=== PATIENT | female | born 2000 | race Two or more races ===

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

== ENCOUNTER 2020-07-01 15:28 | Emergency (ER) | payer OTHER ==
[2020-07-01 15:39] VITALS: BP 121/70; PULSE 69; RESP 18; TEMP 98.4
--- NOTE | 2020-07-01 15:45 | ED ---
Female Urogenital HPI - General Chief complaint: Urogenital Stated complaint: Abd pain/back pain Time Seen by Provider: 07/01/20 15:40 Source: patient Mode of arrival: ambulatory Limitations: no limitations - History of Present Illness Initial comments: patient is a 19-year-old male presents to emergency Department with chief complaint of burning with urination. Patient states this is benign when for approximately 2 weeks foot today she also developed some back pain. She denies any nausea vomiting fever or chills. She denies any hematuria, hematochezia or melena. Denies any vaginal itching, discharge, bleeding or foul smell. Denies any possibility for . States she spoke to her primary care physician who started her on omeprazole and ciprofloxacin. Patient is only taken 2 doses of ciprofloxacin with no improvement in symptoms. She does not have past medical history significant for UTI. she does not have any concerns for STDs. - Related Data Home Medications Medication Instructions Recorded Confirmed Ciprofloxacin HCl 500 mg PO Q12H 07/01/20 07/01/20 Omeprazole 20 mg PO [id number]-[id number] 07/01/20 07/01/20 Previous Rx's Medication Instructions Recorded Phenazopyridine HCl [Pyridium] 100 mg PO TID #21 tab 07/01/20 Sulfamethox-Tmp 800-160Mg [Bactrim 1 each PO Q12HR #10 tab 07/01/20 Ds] Allergies Allergy/AdvReac Type Severity Reaction Status Date / Time No Known Allergies Allergy Verified 07/01/20 16:30 Review of Systems ROS Statement: Those systems with pertinent positive or pertinent negative responses have been documented in the HPI. ROS Other: All systems not noted in ROS Statement are negative. Past Medical History Past Medical History: No Reported History History of Any Multi-Drug Resistant Organisms: None Reported Past Surgical History: No Surgical Hx Reported Past Psychological History: No Psychological Hx Reported Smoking Status: Never smoker Past Alcohol Use History: None Reported Past Drug Use History: None Reported General Exam Limitations: no limitations General appearance: alert, in no apparent distress Head exam: Present: atraumatic, normocephalic, normal inspection Eye exam: Present: normal appearance, PERRL, EOMI Pupils: Present: normal accommodation ENT exam: Present: normal exam, normal oropharynx, mucous membranes moist Neck exam: Present: normal inspection, full ROM. Absent: tenderness Respiratory exam: Present: normal lung sounds bilaterally. Absent: respiratory distress Cardiovascular Exam: Present: regular rate, normal rhythm, normal heart sounds GI/Abdominal exam: Present: soft. Absent: distended, tenderness, guarding, rigid Extremities exam: Present: normal inspection, full ROM, normal capillary refill. Absent: tenderness, pedal edema, joint swelling Back exam: Present: normal inspection, full ROM. Absent: tenderness, CVA tenderness (R), CVA tenderness (L) Neurological exam: Present: alert, oriented X3 Psychiatric exam: Present: normal affect, normal mood Skin exam: Present: warm, dry, intact, normal color Course Vital Signs 07/01/20 15:36 Temperature 98.4 F Pulse Rate 69 Respiratory 18 Rate Blood Pressure 121/70 O2 Sat by Pulse 99 Oximetry Medical Decision Making - Medical Decision Making 19-year-old female presents to the emergency room with chief complaint of burning with urination.on physical examination, patient does not have any CVA tenderness. Abdomen soft nontender. I advised the patient to stop taking the ciprofloxacin this time she will be started on Bactrim. She will be discharged with a 5 day course of Bactrim. UA shows no definitive signs of a UTI but there is leukocyte esterase and moderate amounts of bacteria. urine culture pending. No . Patient also given a prescription for Pyridium for symptomatic control. She was advised to follow with the primary care physician and return to emergency department if symptoms worsen. - Lab Data Lab Results 07/01/20 07/01/20 Range/Units 16:22 16:22 Urine Color Yellow Urine Appearance Cloudy H (Clear) Urine pH 7.0 (5.0-8.0) Ur Specific [place] 1.018 (1.001-1.035) Urine Protein 1+ H (Negative) Urine Glucose (UA) Negative (Negative) Urine Ketones Negative (Negative) Urine Blood Negative (Negative) Urine Nitrite Negative (Negative) Urine Bilirubin Negative (Negative) Urine Urobilinogen <2.0 (<2.0) mg/dL Ur Leukocyte Esterase Trace H (Negative) Urine RBC 1 (0-5) /hpf Urine WBC 4 (0-5) /hpf Ur Squamous Epith Cells 3 (0-4) /hpf Urine Bacteria Moderate H (None) /hpf Urine Mucus Occasional H (None) /hpf Urine HCG, Qual Not Detected (Not Detectd) Disposition Clinical Impression: UTI symptoms Disposition: HOME SELF-CARE Condition: Stable Instructions (If sedation given, give patient instructions): Urinary Tract Infection in Women (ED) Additional Instructions: take prescribed medication as directed. Follow-up with the primary care physician. Return to emergency department if symptoms worsen. Prescriptions: Sulfamethox-Tmp 800-160Mg [Bactrim Ds] 1 each PO Q12HR #10 tab Phenazopyridine HCl [Pyridium] 100 mg PO TID #21 tab Is patient prescribed a controlled substance at d/c from ED?: No Referrals: Nonstaff,Physician [Primary Care Provider] - 1-2 days Time of Disposition: 16:45
[2020-07-01 16:29] LABS: Appearance,Urine Cloudy (Clear); Bacteria,Urine Moderate /hpf; Bilirubin,Urine Negative (Negative); Blood,Urine Negative (Negative); Color,Urine Yellow; Glucose,Urine (UA) Negative (Negative); Ketones,Urine Negative (Negative); Leukocyte Esterase,Urine Trace (Negative); Mucus,Urine Occasional /hpf; Nitrite,Urine Negative (Negative); Protein,Urine 1+ (Negative); RBC,Urine 1 /hpf (0-5); Specific Gravity,Urine 1.018 (1.001-1.035); Squamous Epithelial Cell,Urine 3 /hpf (0-4); Urobilinogen,Urine <2.0 mg/dL (<2.0); WBC,Urine 4 /hpf (0-5)
[2020-07-01] MEDS ORDERED: SULFAMETHOX-TMP 800-160MG 1 EACH TAB PO STA (16:42)
== END 2020-07-01 17:01 | disposition home or self-care (01) ==
LOC: EC 15:28
DX: R31.9 Hematuria, unspecified (principal); M54.9 Dorsalgia, unspecified
CPT/HCPCS: 81001; 81025; 87086; 99283